=== PATIENT | female | born 1995 | race Caucasian/White ===

== ENCOUNTER 2017-08-22 11:47 | Emergency (ER) | payer OTHER ==
[~2017-08-22] VITALS: Ht 162.6 cm; Wt 85.9 kg
[2017-08-22 11:55] VITALS: TEMP 98.1
[2017-08-22] MEDS ORDERED: KLONOPIN 0.5MG0.5 MG PO (12:24)
[2017-08-22] MEDS ORDERED: PROVIGIL 100MG100 MG PO (12:24)
[2017-08-22] MEDS ORDERED: PRISTIQ100 MG PO (12:24)
[2017-08-22] MEDS ORDERED: KLONOPIN 1MG1 MG PO (12:24)
[2017-08-22] MEDS ORDERED: ZYRTEC 10MG10 MG PO (12:25)
[2017-08-22] MEDS ORDERED: PREDNISONE 5MG5 MG PO (12:25)
[2017-08-22] MEDS ORDERED: PREVACID 30MG30 M1 PO (12:25)
[2017-08-22] MEDS ORDERED: TRILEPTAL 150M150 MG PO (12:25)
[2017-08-22 13:02] LABS: BASO % 0.1 % (0.0-2.0); EOS % 0.2 % (0-4.0); GRAN % 84.5 % (42.2-75.2); HEMATOCRIT 37.9 % (37.0-47.0); HEMOGLOBIN 12.4 g/dl (12.5-16.0); LYMPH % 11.6 % (20.0-51.0); MEAN CELL VOLUME 84 fl (80.0-100.0); MEAN CORPUSCULAR HEMOGLOBIN 27 pg (27.0-31.0); MEAN CORPUSCULAR HGB CONC 33 g/dl (33.0-37.0); MONO # 0.3 (0.1-0.6); MONO % 3.4 % (1.7-9.3); PLATELET COUNT 245 K/mm3 (130-400); RED BLOOD COUNT 4.53 M/mm3 (4.10-5.30); REDCELL DISTRIBUTION WIDTH-CV 12.4 % (11.5-14.5)
[2017-08-22 13:18] LABS: ALBUMIN 4.7 gm/dL (3.5-5.0); BILIRUBIN,TOTAL 0.3 mg/dL (0.0-1.0); CREATININE, serum 0.61 mg/dL (0.52-1.25); POTASSIUM 4.1 mmol/L (3.4-5.0); TOTAL PROTEIN 7.7 gm/dL (6.4-8.2)
[2017-08-22] MEDS ORDERED: PREDNISONE20 MG PO (13:33)
[2017-08-22] MEDS ORDERED: PEPCID 20MG TAB20 MG PO (13:33)
[2017-08-22 13:34] VITALS: BP 129/64; PULSE 89
== END 2017-08-22 13:40 | disposition home or self-care (01) ==
LOC: COL.ER 11:47
PROVIDERS: Physician Assistant
DX: L50.9 Urticaria, unspecified (principal); M79.7 Fibromyalgia
CPT/HCPCS: J7512

== ENCOUNTER 2017-10-16 09:42 | Emergency (ER) | payer OTHER ==
[~2017-10-16] VITALS: Ht 162.6 cm; Wt 86.4 kg
[~2017-10-16 09:42] MED LIST: KLONOPIN 0.5MG0.5 MG PO; KLONOPIN 1MG1 MG PO; PEPCID 20MG TAB20 MG PO; PREDNISONE 5MG5 MG PO; PREDNISONE20 MG PO; PREVACID 30MG30 M1 PO; PRISTIQ100 MG PO; PROVIGIL 100MG100 MG PO; TRILEPTAL 150M150 MG PO; ZYRTEC 10MG10 MG PO
[2017-10-16 13:43] VITALS: BP 145/81; PULSE 70; TEMP 97.7
== END 2017-10-16 12:28 | disposition home or self-care (01) ==
LOC: COL.ER 09:42
DX: T48.6X5A Adverse effect of antiasthmatics, initial encounter (principal)
CPT/HCPCS: J0171; J1200; J2930; J7030